=== PATIENT | female | born 1990 | race Two or more races ===

== ENCOUNTER 2022-02-14 17:26 | Emergency (ER) | payer OTHER ==
[~2022-02-14] VITALS: Ht 165.1 cm; Wt 72.6 kg
== END 2022-02-14 20:34 | disposition home or self-care (01) ==
LOC: ER 17:26
DX: O03.9 Complete or unspecified spontaneous abortion without complication (principal)

== ENCOUNTER 2022-05-26 08:38 | Outpatient (CLI) | payer OTHER | END 2022-05-26 15:49 | disposition home or self-care (01) | LOC: LAB 08:38 | PROVIDERS: ATTEND Family Medicine | DX: N39.0 Urinary tract infection, site not specified (principal); E03.9 Hypothyroidism, unspecified; E78.5 Hyperlipidemia, unspecified; M06.4 Inflammatory polyarthropathy; R10.9 Unspecified abdominal pain ==

== ENCOUNTER 2022-05-26 10:20 | Outpatient (CLI) | payer OTHER | END 2022-05-26 10:37 | disposition home or self-care (01) | LOC: SONOGRAMA 10:20 | PROVIDERS: ATTEND Family Medicine | DX: R10.9 Unspecified abdominal pain (principal) ==

== ENCOUNTER → 2023-10-15 | Emergency (ER) | payer OTHER ==
[~2023-10-15] VITALS: Ht 160 cm; Wt 95.3 kg
[~2023-10-15] MED LIST: PRENA1 TRUE CO1 EACH PO
== END | disposition home or self-care (01) ==
LOC: ER 09:18
DX: J06.9 Acute upper respiratory infection, unspecified (principal)

== ENCOUNTER 2024-09-13 08:05 | Emergency (ER) | payer OTHER ==
[~2024-09-13] VITALS: Ht 165.1 cm; Wt 90.7 kg
[~2024-09-13 08:05] MED LIST changes: +COLACE100 MG PO; +IBU800 MG PO; +PERCOCET 5-3251 EACH PO; +PRENATAL + DHA1 EAC1 PO; +SIMETHICONE80 MG PO
[2024-09-13] MEDS ORDERED: 0.9 % SODIUM CHLORIDE 1,000 ML IV SCH (09:45)
[2024-09-13] MEDS ORDERED: DIATRIZOATE MEGLUMINE, SODIUM 30 ML BOTTLE ONE (10:05)
[2024-09-13] MEDS ORDERED: ONDANSETRON HCL 2 MG/ML VIAL IV ONE (10:45)
[2024-09-13 10:49] LABS: HEMATOCRIT 40.9 % (36.0-45.00); HEMOGLOBIN 13.6 g/dL (12.0-15.00); MEAN CELL VOLUME 81.6 fL (80.00-100.00); MEAN CORPUSCULAR HEMOGLOBIN 27.1 pg (27.00-32.0); MEAN CORPUSCULAR HGB CONC 33.2 g/dl (32.0-36.0); PLATELET COUNT 326 K/uL (150-450); RED BLOOD COUNT 5.01 M/uL (4.00-6.00); RED CELL DISTRIBUTION WIDTH 14.6 % (11.5-14.5)
[2024-09-13] MEDS ORDERED: ONDANSETRON HCL 2 MG/ML VIAL ONE (10:51)
[2024-09-13 11:12] LABS: CALCIUM 9.2 mg/dL (8.5-10.1); CREATININE SERUM 0.83 mg/dL (0.55-1.02); GFR 79.67; POTASSIUM 4.11 mEq/L (3.5-5.1)
[2024-09-13 12:12] LABS: URINE APPEARANCE Clear; URINE BILIRRUBIN Negative (NEGATIVE); URINE BLOOD Negative; URINE COLOR Yellow; URINE GLUCOSE Negative (NEGATIVE); URINE KETONE Negative (NEGATIVE); URINE LEUKOCYTE Negative; URINE NITRATE Negative; URINE PROTEIN Negative (NEGATIVE); URINE UROBILINOGEN 0.2 E.U./dl
[2024-09-13 12:16] LABS: URINE BACTERIA 144.3 uL (0.0-1933); URINE EPITHELIAL CELLS 20.5 uL (0.0-38.8); URINE RBC 2.6 uL (0.0-20.8)
[2024-09-13 12:28] LABS: URINE WBC 0.9 uL (0.0-23.2)
== END 2024-09-13 16:02 | disposition home or self-care (01) ==
LOC: ER 08:07
PROVIDERS: Emergency Medicine
DX: R10.9 Unspecified abdominal pain (principal)
CPT/HCPCS: 36415; 74177; Q9965